=== PATIENT | male | born 1970 | race Caucasian/White ===

== ENCOUNTER 2017-02-18 11:06 | Emergency (ER) | payer OTHER ==
[~2017-02-18] VITALS: Ht 185.4 cm; Wt 128.0 kg
[2017-02-18 11:07] VITALS: BP 139/91; PULSE 75; RESP 16; TEMP 98; O2SAT 98
--- NOTE | 2017-02-18 11:18 | PD ---
HPI . right foot pain s/p twisting injury last night Chief Complaint: Injury Time Seen by Provider: 11:18 Travel History International Travel<30 days: No Contact w/Intl Traveler<30days: No Traveled to known affect area: No History of Present Illness HPI 46-year-old male here with complaints of right foot pain after twisting his foot yesterday while stepping off a curb. Patient says that the pain has persisted and he wanted to come in just for a quick check. He doesn't think that he has a fracture, however he does believe that he may have sprained his foot and ankle. Patient is ambulatory, however he does have some difficulty and pain. He has tried icing the area and the swelling has gone down, but there some mild swelling still present. He has no other complaints at this time. [facility] Social History Tobacco Use: No Allergies-Medications Reported Meds & Prescriptions Reported Meds & Active Scripts Active Ibuprofen 800 Mg Tab 800 Mg PO TID Review of Systems General / Constitutional: No: Fever Eyes: No: Visual changes HENT: No: Headaches Cardiovascular: No: Chest Pain or Discomfort Respiratory: No: Shortness of Breath Gastrointestinal: No: Abdominal Pain Genitourinary: No: Dysuria Musculoskeletal: Positive: Pain (right ankle pain ) Skin: No Rash Neurologic: No: Weakness Psychiatric: No: Depression Endocrine: No: Polydipsia Hematologic/Lymphatic: No: Easy Bruising Physical Exam Narrative GENERAL: AAO x 3, no acute distress, Well-nourished, well-developed patient. SKIN: Warm and dry. No visible rashes or bruising. HEAD: Normocephalic and atraumatic. EYES: No scleral icterus. No injection or drainage. EOM intact, PERRLA ENT: No nasal drainage noted. Mucous membranes pink. Airway patent. NECK: Supple, trachea midline. No JVD. CARDIOVASCULAR: Regular rate and rhythm without murmurs, gallops, or rubs. RESPIRATORY: Breath sounds equal bilaterally. No accessory muscle use. No rhonchi or rales. GASTROINTESTINAL: Abdomen soft, non-tender, nondistended. EXTREMITIES: No cyanosis, mild edema to lateral malleolus on right, mild tenderness to touch, rotation is normal, dorsi and plantar flexion both normal, pedal pulses normal and capillary refill normal in the toes BACK: No obvious deformity. NEURO: CN II-12 intact, parking enforcement officer strength normal b/l, UE and LE 5/5, no focal deficits PSYCH: AAO x 3, normal affect. Data Data Last Documented VS Vital Signs Date Time Temp Pulse Resp B/P Pulse Ox O2 Delivery O2 Flow Rate FiO2 02/18/17 11:07 98.0 75 16 139/91 98 Room Air Orders Naveed Bandage (02/18/17 11:22) ^ Other Nursing Orders (02/18/17 11:22) MDM Medical Decision Making Medical Screen Exam Complete: Yes Emergency Medical Condition: Yes Medical Record Reviewed: Yes Differential Diagnosis ankle sprain, less likely ankle fracture, less likely foot fracture Narrative Course 46-year-old male here with complaints of right ankle and foot pain. Abdomen examination patient has some mild tenderness near the lateral malleolus on the right. He does not meet criteria for imaging per [facility] ankle rules. I've discussed this with him and he is in agreement. We both do not believe he has an ankle fracture and this is more than likely a sprain. I provided him Naveed wrap and offered crutches, however he declined. I've given a postop shoe. Prior to discharge patient verbalized that he was feeling better and able to walk. I recommend rest, pressure, elevation and ice. I advised him if his pain persists past 7-10 days, follow up with his primary care provider. Patient verbalized understanding of instructions, questions were answered, and thanked me for their care. I advised them if their condition worsens, please return to the nearest emergency room for further care. Diagnosis Primary Impression: Ankle pain, right Qualified Code: M25.571 - Acute right ankle pain Additional Impression: Ankle sprain Qualified Code: S93.401A - Sprain of right ankle, unspecified ligament, initial encounter Patient Instructions: General Instructions Additional Instructions: Rest the affected area as much as possible. Ice this area for 15-20 minutes at a time. You can do this every hour or as much as tolerated. Keep this area compressed (naveed bandage) as tolerated. Elevate this area. Use ibuprofen as needed for pain and inflammation. Please return to emergency department if your symptoms return or worsen. Follow up with your primary care provider. Take medications as prescribed. If pain persists past 7-10 days, follow-up with her primary care provider. Scripts Ibuprofen 800 Mg [id number] Mg PO TID #21 TAB Prov:Dolores Giraldo DO 02/18/17 Disposition: 01 DISCHARGE HOME Condition: Stable Khadra Avalos Feb 18, 2017 11:18
[2017-02-18] MEDS ORDERED: IBUP800T23 PO (11:26)
[2017-02-18 11:35] VITALS: BP 132/80; TEMP 97.8
[2017-02-18] MEDS ORDERED: PROZ20CA11 PO (11:47)
== END 2017-02-18 11:45 | disposition home or self-care (01) ==
LOC: NEPK 11:06
DX: S93.401A Sprain of unspecified ligament of right ankle, initial encounter (principal); W10.1XXA Fall (on)(from) sidewalk curb, initial encounter; X50.1XXA Overexertion from prolonged static or awkward postures, initial encounter
CPT/HCPCS: 99282